=== PATIENT | female | born 1985 | race Caucasian/White ===

== ENCOUNTER → 2024-07-29 11:13 | Outpatient (REF) | payer OTHER, SELFPAY | LOC: PNTC 11:13 | PROVIDERS: ATTENDING PHYSICIAN Obstetrics & Gynecology | DX: Z34.93 Encounter for supervision of normal pregnancy, unspecified, third trimester (principal) | CPT/HCPCS: 36415; 86850; 86900; 86901; 96372; J2790 ==

== ENCOUNTER 2024-09-09 19:36 | Observation (INO) | payer OTHER, SELFPAY ==
[2024-09-09 19:42] VITALS: BMI 39.3
[2024-09-09 20:09] VITALS: BP 130/83
== END 2024-09-09 23:37 | disposition home or self-care (01) ==
LOC: LDRP 19:36
PROVIDERS: ADMITTING PHYSICIAN Obstetrics & Gynecology
DX: O47.03 False labor before 37 completed weeks of gestation, third trimester (principal); Z3A.35 35 weeks gestation of pregnancy
CPT/HCPCS: G0378

== ENCOUNTER 2024-10-01 06:22 | Inpatient (IN) | payer OTHER, SELFPAY ==
[2024-10-01] MEDS: MORPHINE SULFATE 2 MG IV (07:01)
[2024-10-01 07:36] VITALS: BP 108/54; BMI 40.6
[2024-10-01 08:33] LABS: % Basophils 0.1 % (0-2); % Eosinophils 0.3 % (0-6); % Immature Granulocytes 1.6 % (0-0.5); % Lymphocytes 7.5 % (20.5-51.1); % Monocytes 4.3 % (1.7-9.3); % Neutrophils 86.2 % (42.2-75.2); Absolute Immature Granulocytes 0.2 10^3/uL (0-0.05); Absolute Lymphocytes 1.1 10^3/uL (1.2-3.4); Absolute Monocytes 0.6 10^3/uL (0.1-0.6); Absolute Neutrophils 12.6 10^3/uL (1.4-6.5); Hematocrit 31.8 % (37.0-47.0); Hemoglobin 10.4 g/dL (12.0-16.0); Mean Corp Hgb Conc. 32.7 g/dL (33.0-37.0); Mean Corpuscular Hgb 27.3 pg (27.0-31.0); Mean Corpuscular Volume 83.5 fL (81.0-99.0); Mean Platelet Volume 11.4 fL (7.4-10.4); Nucleated Red Blood Cells % 0 %; Platelet Count 185 10^3/uL (130-400); Red Blood Cell Count 3.81 10^6/uL (4.20-5.40); Red Cell Dist. Width 15.4 % (11.5-14.5); White Blood Cell Count 14.6 10^3/uL (4.8-10.8)
[2024-10-01] MEDS: MOTRIN 600 MG PO ×3 (09:10→22:34)
[2024-10-01] MEDS: TYLENOL 650 MG PO ×3 (09:10→22:34)
[2024-10-02 05:40] LABS: Hematocrit 29.4 % (37.0-47.0); Hemoglobin 9.6 g/dL (12.0-16.0)
[2024-10-02] MEDS: SENOKOT-S 1 TABLET PO (08:48)
[2024-10-02] MEDS: MOTRIN 600 MG PO ×3 (08:48→21:03)
[2024-10-02] MEDS: TYLENOL 650 MG PO ×3 (09:20→21:03)
[2024-10-02] MEDS: RHOGAM 300 MCG IM ×2 (14:57→17:22)
[2024-10-02 17:50] LABS: Syphilis/T. pallidum Ab Reflex Negative (Negative)
[2024-10-03] MEDS: TYLENOL 650 MG PO ×2 (03:07→10:04)
[2024-10-03] MEDS: MOTRIN 600 MG PO ×2 (03:08→10:04)
[2024-10-03] MEDS: SENOKOT-S 1 TABLET PO (07:54)
[2024-10-03] MEDS: FEOSOL 325 MG PO (07:54)
== END 2024-10-03 17:30 | disposition home or self-care (01) | DRG 807 ==
LOC: LDRP 06:22
PROVIDERS: Obstetrics & Gynecology; ADMITTING PHYSICIAN Obstetrics & Gynecology
PROC: 6A550ZT Pheresis of Cord Blood Stem Cells, Single (ICD-10-PCS; 2024-10-01)
PROC: 0HQ9XZZ Repair Perineum Skin, External Approach (ICD-10-PCS; 2024-10-01)
PROC: 10E0XZZ Delivery of Products of Conception, External Approach (ICD-10-PCS; 2024-10-01)
PROC: 0UQMXZZ Repair Vulva, External Approach (ICD-10-PCS; 2024-10-01)
PROC: 3E0234Z Introduction of Serum, Toxoid and Vaccine into Muscle, Percutaneous Approach (ICD-10-PCS; 2024-10-02)
DX: Z39.0 Encounter for care and examination of mother immediately after delivery (principal); Z37.0 Single live birth; Z87.442 Personal history of urinary calculi; O99.825 Streptococcus B carrier state complicating the puerperium; O70.0 First degree perineal laceration during delivery; O99.215 Obesity complicating the puerperium; O90.81 Anemia of the puerperium; D64.9 Anemia, unspecified; Z88.2 Allergy status to sulfonamides
CPT/HCPCS: 36415; 85014; 85018; 85025; 85461; 86780; 86850; 86870; 86900; 86901; J2790

== ENCOUNTER 2024-11-01 18:29 | Emergency (ER) | payer OTHER, SELFPAY ==
[2024-11-01 18:34] VITALS: BP 134/84
[2024-11-01 18:53] LABS: Hematocrit 38.4 % (37.0-47.0); Hemoglobin 12.2 g/dL (12.0-16.0); Mean Corp Hgb Conc. 31.8 g/dL (33.0-37.0); Mean Corpuscular Volume 84.6 fL (81.0-99.0); Nucleated Red Blood Cells % 0 %; Platelet Count 213 10^3/uL (130-400); Red Cell Dist. Width 16.1 % (11.5-14.5)
[2024-11-01 19:08] LABS: ALT (SGPT) 24 U/L (0-35); AST (SGOT) 22 U/L (14-36); Albumin 4.5 g/dl (3.5-5.0); Alkaline Phosphatase 90 U/L (38-126); Blood Urea Nitrogen 12 mg/dl (7-17); Calcium 9.3 mg/dl (8.4-10.2); Carbon Dioxide 24 mmol/L (22-30); Chloride 107 mmol/L (98-107); Glucose 91 mg/dl (70-99); Potassium 3.9 mmol/L (3.5-5.1); Sodium 138 mmol/L (135-145); Total Protein 7.1 g/dl (6.3-8.2); eGFR > 60.00
[2024-11-01 20:00] VITALS: BP 121/65
--- NOTE | 2024-11-01 22:54 | ED.GENMED ---
History of Present Illness
General
Chief Complaint: Vaginal Bleeding
Source: patient
Exam Limitations: none
Time Seen by Provider: 11/01/24 20:24
Nursing documentation reviewed up to this point in time: agreed with
History of Present Illness
History of Present Illness:
Patient to ED with complaint of vaginal bleeding. SHe is 4 weeks. Bleeding started 2 days ago but was light, Since this AM she reports heavy bleeding, occassional small clots. Denies any abdominal or pelvic pain. No cramping.
Brought self to ED for eval.
Past History
Past History
ED Past Medical History: None
Review of Systems
Review of Systems
Allergies reviewed?: Yes
All Other Systems: ROS reviewed and negative except as documented in HPI and ROS
Constitutional: Reports no symptoms
EENT: Reports no symptoms
Respiratory: Reports no symptoms
Cardiac: Reports no symptoms
ABD/GI: Reports no symptoms
: Reports bleeding (heavy vaginal bleeding since this AM)
Musculoskeletal: Reports no symptoms
Skin: Reports no symptoms
Neurological: Reports no symptoms
Psychiatric: Reports no symptoms
Phy Exam
General Physical Exam
General Presentation: well appearing and no apparent distress
General age: appears stated age
General Skin: warm and dry
General Habitus: normal
General Mental: alert
General Hydration: appears well hydrated
Cardiovascular Exam
Cardiovascular Exam: regular rate/rhythm
Gastrointestinal Exam
Gastrointestinal Exam: non tender, soft, no organomegaly, no pulsatile mass and non distended
Genitourinary Exam Female
Exam Female: vaginal bleeding
Vaginal Exam: blood
Vaginal Bleeding: moderate
Musculoskeletal Exam
Musculoskeletal Exam: full ROM and neuro vasc intact
Skin Exam
Skin Exam: normal color, warm/dry and no rash
Psychiatric Exam
Psychiatric Exam: normal mood/affect
Course
Orders/Labs/Results
Orders:
Orders
11/01/24 18:40
Type+Screen Urgent
Complete Blood Count/With Diff Urgent
Comprehensive Metabolic Panel Urgent
11/01/24 20:24
US Pelvis W Transvag Combined Urgent
Reason For Exam: bleeding
11/01/24 23:03
Tranexamic Acid [Cyklokapron] 1,300 mg PO NOW STA
Abnormal Lab Results
11/01/24
18:40
MCH 26.9 L pg
(27.0-31.0)
MCHC 31.8 L g/dL
(33.0-37.0)
RDW 16.1 H %
(11.5-14.5)
MPV 11.0 H fL
(7.4-10.4)
Antibody Screen Positive A
(Negative)
11/01/24 18:40
11/01/24 18:40
Vital Signs
Initial and Last Documented VS:
Initial Vital Signs
Resp
16
11/01/24 18:32
Last Documented Vital Signs
Temp Pulse Resp BP Pulse Ox
98.3 F 67 14 129/88 100
11/01/24 18:34 11/02/24 00:00 11/02/24 00:00 11/02/24 00:00 11/02/24 00:00
*Radiology
Radiology exam reviewed: radiology read reviewed
*Pulse Oximetry
SaO2: 98
Oxygen Mode of Delivery: Room air
Patient hypoxic: no
*Critical Care Note
Total Time (30-74mins, 75-104mins- exclusive of procedures): Not Applicable
Update Note
Update Note:
Patient to ED with complaint of vaginal bleeding. She is 4weeks . Bleeding started 3 days ago, today became heavy. Labs, US report reviewed. Dr. Vogel consulted. WIll placedon TXA 1300mg tid prn, patient to follow up in office. TXA
started in dept. patient given instructions on s/s to return to ED and she is agreeable to plan. Will call Dr. Vogel office in AM, schedule follow up appointment.
ED Attending Note
-
Portions of this chart may have been created with voice recognition software.� Occasional wrong word or��sound alike� substitutions may have occurred due to the inherent limitations of voice recognition software.
Discharge Plan
Departure
Patient Disposition: Home (Routine Discharge)
Date of Disposition: 11/01/24
Time of Disposition: 23:08
Patient with high blood pressure during this ER visit?: No
Condition: Good
Covid-19: Not Applicable
Discharge Problem:
Vaginal bleeding
Instructions: Heavy periods - ED discharge instructions
Prescriptions:
New
tranexamic acid 650 mg tablet
1,300 mg PO TID PRN (Reason: heavy bleeding) 5 Days Qty: 30 0RF
No Action
1 tab PO DAILY
acetaminophen 325 mg Tablet
650 mg PO Q4HPRN PRN (Reason: mild pain) Qty: 0 0RF
ibuprofen 600 mg Tablet
600 mg PO Q6HPRN PRN (Reason: moderate pain/cramps) Qty: 0 0RF
Referrals:
Alexia Vogel, DO [Active, Gynecology] - Call in 1-3 days for appt
UNKNOWN - PT DOES,NOT KNOW [Family Provider]
Activity Restrictions/Additional Instructions:
Return to the emergency department immediately for any changes in/worsening of your symptoms.
Interventions
Interventions:
*Risk Screen - Suicide Last Done: 11/01/24 18:34
*General Assessment Last Done: 11/01/24 21:00
*Neglect/Abuse Screening Last Done: 11/01/24 18:34
*ED- Fall Risk Assessment Last Done: 11/01/24 21:00
*ED COVID-19 Vaccine History Last Done: 11/01/24 21:00
*Nursing Disposition Last Done: 11/02/24 00:00
ED-Female Genitourinary Assessment Last Done: 11/01/24 21:00
Discharge Date and Time
Discharge Date/Time: 11/02/24 00:00
Print Language: ROMANIAN
[2024-11-01] MEDS: CYKLOKAPRON 1300 MG PO (23:18)
[2024-11-01 23:30] VITALS: BP 129/88
[2024-11-02] VITALS: BP 129/88
== END 2024-11-02 | disposition home or self-care (01) ==
LOC: EMR 18:29
PROVIDERS: EMERGENCY PHYSICIAN Emergency Medicine
DX: N93.9 Abnormal uterine and vaginal bleeding, unspecified (principal)
CPT/HCPCS: 99284; 76830; 76856; 80053; 85025; 86850; 86870; 86900; 86901

== ENCOUNTER 2025-03-24 22:07 | Inpatient (IN) | payer OTHER, SELFPAY ==
[2025-03-24 18:37] VITALS: BP 155/89
[2025-03-24 18:53] LABS: Hematocrit 39.3 % (37.0-47.0); Hemoglobin 12.6 g/dL (12.0-16.0); Mean Corp Hgb Conc. 32.1 g/dL (33.0-37.0); Mean Corpuscular Volume 88.5 fL (81.0-99.0); Nucleated Red Blood Cells % 0 %; Platelet Count 186 10^3/uL (130-400); Red Cell Dist. Width 14.4 % (11.5-14.5)
[2025-03-24 19:15] LABS: HCG, Serum Qualitative Screen Negative
[2025-03-24 19:16] LABS: ALT (SGPT) 12 U/L (0-35); AST (SGOT) 15 U/L (14-36); Albumin 4.3 g/dl (3.5-5.0); Alkaline Phosphatase 92 U/L (38-126); Blood Urea Nitrogen 13 mg/dl (7-17); Calcium 9.2 mg/dl (8.4-10.2); Carbon Dioxide 26 mmol/L (22-30); Chloride 102 mmol/L (98-107); Glucose 96 mg/dl (70-99); Potassium 4.3 mmol/L (3.5-5.1); Sodium 134 mmol/L (135-145); Total Protein 7.4 g/dl (6.3-8.2); eGFR > 60.00
[2025-03-24 20:00] LABS: Urine Character Clear (Clear)
[2025-03-24 20:13] LABS: Urine Squamous Cell >30 /LPF (Few)
[2025-03-24 20:15] LABS: Urine Red Blood Cell 50-60 /HPF (0-2)
[2025-03-24] MEDS: NSS 1000 IV ×2 (20:16→23:00)
[2025-03-24] MEDS: TORADOL 15 MG IV (20:17)
--- NOTE | 2025-03-24 20:45 | ED.GENMED ---
History of Present Illness
General
Chief Complaint: Flank Pain
Source: patient
Exam Limitations: none
Time Seen by Provider: 03/24/25 19:35
Nursing documentation reviewed up to this point in time: agreed with
History of Present Illness
History of Present Illness:
Patient is a 39-year-old female with history of kidney stones who presents to the emergency department with left flank pain. Patient states that she has had intermittent pain in her left flank for the past month however noticed acute worsening
today. She describes a severe, constant pain in her left flank radiating to her left groin associated with nausea. She has not had any episodes of vomiting. No known fever however has felt 'chills'. Patient denies any chest pain or shortness of
breath. No dysuria, urinary hesitancy, or hematuria.
Patient states that she has a history of obstructing kidney stones approximately 8 years ago which required stents and lithotripsy. This was done at [facility]. She has not seen a urologist since that time.
Past History
Past History
ED Past Medical History: None
Review of Systems
Review of Systems
Allergies reviewed?: Yes
All Other Systems: ROS reviewed and negative except as documented in HPI and ROS
Phy Exam
Physical Exam
Physical Exam:
Vitals: Hypertensive and tachycardic on arrival, otherwise vital signs stable. Afebrile
General: Patient is moderately uncomfortable appearing due to pain. Nontoxic
Skin: Warm and dry, no rashes or lesions
Head: Normocephalic, atraumatic
Eyes: Sclera nonicteric.
Throat: Protecting airway
Neck: Normal ROM, no cervical spine tenderness, no meningismus
Cardiac: Tachycardic, normal rhythm. No murmurs
Pulm: Normal respiratory effort. Lungs clear bilaterally
Abdomen: Abdomen soft. Mild tenderness in left mid/lower abdomen without rebound or guarding. Reproducible tenderness in left flank area. No rash or ecchymoses.
Extremities: No evidence of cyanosis or edema
Neuro: AAOx3. Grossly intact
Psychiatric: Normal affect.
Course
Orders/Labs/Results
Orders:
Orders
03/24/25 18:41
Test Result ONCE
03/24/25 18:45
Complete Blood Count/With Diff Urgent
Comprehensive Metabolic Panel Urgent
HCG, Serum Qualitative Screen Urgent
03/24/25 18:56
CT Abd/pelvis Wo Iv Cont Urgent
Comment: left flank pain
Reason For Exam: r/o kidney stone
03/24/25 19:49
0.9% Sodium Chloride 1000 ml [Nss] 1,000 ml IV BOLUS
Ketorolac [Toradol] 15 mg IV NOW STA
03/24/25 19:51
Urinalysis Reflex To Culture Urgent
Date Specimen was Collected: 03/24/25
Time Specimen was Collected: 19:43
Urine Microscopic Reflex Cult Urgent
Urine Culture Urgent
SIMON Source: U
Specimen Description:
Date Specimen was Collected: 03/24/25
Time Specimen was Collected: 19:43
03/24/25 21:14
CefTRIAXone [Rocephin] 1,000 mg IV NOW STA
03/24/25 21:42
Admit/Transfer Patient As Directed
Co-Sign Provider:
Level of Care: Inpatient admission
Assign to:: Telemetry
Physician / Group: jesus
Diagnosis: obstructing stone
Reason for Telemetry: Arrhythmia
Date to Stop Telemetry: 03/27/25
Time to Stop Telemetry: 11:00
Reason for Hospitalization: obstructing stone
Expected length of stay greater than two midnights?: Yes
ELOS- Estimated Length of Stay in days: 3
I certify the patient meets the requirements for IP care: Yes
PRN Pain Medication Management As Directed
May give lesser potent ordered pain med per pt: Yes
preference::
Protocol:: Medication orders for pain may be administered in a
manner that supports deferring to patient preference
when the pt is:
- Requesting an ordered lesser potent pain medication.
Least to most potent pain medications are defined
as: acetaminophen < NSAID < tramadol < opioids
(morphine, oxycodone, hydromorphone).
- Requesting a lesser dose of the same medication IF
ORDERED.
- Requesting a less intrusive route of administration
if both routes are prescribed by the provider (PO <
IV).
03/24/25 21:43
Code Status As Directed
Resuscitation Status: Full Code
03/24/25 21:49
PRN Pain Medication Management As Directed
May give lesser potent ordered pain med per pt: Yes
preference::
Protocol:: Medication orders for pain may be administered in a
manner that supports deferring to patient preference
when the pt is:
- Requesting an ordered lesser potent pain medication.
Least to most potent pain medications are defined
as: acetaminophen < NSAID < tramadol < opioids
(morphine, oxycodone, hydromorphone).
- Requesting a lesser dose of the same medication IF
ORDERED.
- Requesting a less intrusive route of administration
if both routes are prescribed by the provider (PO <
IV).
03/24/25 22:53
0.9% Sodium Chloride 1000 ml [Nss] 1,000 ml IV 125 mls/hr
Acetaminophen [Tylenol] 650 mg PO Q4HPRN PRN
Bisacodyl [Dulcolax] 10 mg RECTAL [id number] PRN
Docusate W/Senna [Senokot-S] 1 tablet PO BIDPRN PRN
HYDROmorphone [Dilaudid] 0.5 mg IV Q4HPRN PRN
Oxycodone [Roxicodone] 5 mg PO Q4HPRN PRN
Polyethylene Glycol Powder [Miralax] 17 grams PO DAILYPRN PRN
03/24/25 22:53
UROLOGY CONSULT Routine
Consulting Provider: Charles Germain Jr.
Was physician already notified: Yes
Activity As Directed
Activity Level: As Tolerated
Strain Urine As Directed
Venous Foot Pumps As Directed
Location: Bilateral feet
Vital Signs As Directed
Frequency: Per unit guidelines
DX Deep Vein Thrombosis Video Routine
03/25/25 05:27
Basic Metabolic Panel IN AM
Complete Blood Count/No Diff IN AM
03/25/25 21:00
CefTRIAXone [Rocephin] 1,000 mg IV Q24H
03/26/25 06:00
Basic Metabolic Panel IN AM
03/27/25 06:00
Basic Metabolic Panel IN AM
03/27/25 11:00
DC Protocol for Telemetry ONCE
Abnormal Lab Results
03/24/25 03/24/25
18:45 19:51
WBC 15.3 H 10^3/uL
(4.8-10.8)
MCHC 32.1 L g/dL
(33.0-37.0)
MPV 10.8 H fL
(7.4-10.4)
Abs Immat Gran (auto) 0.1 H 10^3/uL
(0-0.05)
Absolute Neuts (auto) 12.9 H 10^3/uL
(1.4-6.5)
Absolute Monos (auto) 0.9 H 10^3/uL
(0.1-0.6)
Neutrophils % 84.4 H %
(42.2-75.2)
Lymphocytes % 8.4 L %
(20.5-51.1)
Sodium 134 L mmol/L
(135-145)
Creatinine 1.1 H mg/dL
(0.6-1.0)
Ur Occult Blood Reflex 3+ A
(Negative)
Urine RBC 50-60 A /HPF
(0-2)
Urine WBC (Reflex) 11-15 A /HPF
(0-5)
Urine Bacteria (Reflex) Few A
(Negative)
Urine Albumin (Reflex) 1+ A
(Neg - Trace)
03/24/25 18:45
03/24/25 18:45
Vital Signs
Initial and Last Documented VS:
Initial Vital Signs
Temp Pulse Resp BP Pulse Ox
98.9 F 115 16 155/89 99
03/24/25 18:37 03/24/25 18:37 03/24/25 18:37 03/24/25 18:37 03/24/25 18:37
Last Documented Vital Signs
Temp Pulse Resp BP Pulse Ox
97.7 F 94 20 103/91 99
03/25/25 10:46 03/25/25 11:00 03/25/25 11:00 03/25/25 11:00 03/25/25 11:00
MDM/Problems Addressed
Differential Diagnosis Includes:
Not limited to: Renal colic, pyelonephritis, muscle strain/spasm, diverticulitis, etc.
MDM/Problems Addressed:
39 year-old female presenting with left flank pain associated w/ nausea. History of obstructing kidney stones. No fevers, dysuria, or hematuria.
Patient tachycardia and hypertensive on arrival however improved by my assessment. On exam, she appears moderately uncomfortable due to pain. Abdomen is soft with tenderness in left mid abdomen. Left CVA tenderness noted. No rash. Cardio/pulmonary
assessment unremarkable.
Prior to my evaluation, basic labs were sent which reveal a leukocytosis and very mild renal insufficiency with creatinine of 1.1.
Clinical picture most consistent with renal colic. Will obtain CT scan abdomen/pelvis without contrast. UA is pending. Will treat pain with Toradol and give IV fluids.
Update: UA appears contaminated, however without clear evidence of associated UTI. CT scans shows a 1.8 CM stone in left renal pelvis at UPJ causing mod hydro.
Given size � very very low likelihood of spontaneous passage. Case was discussed with urology systems applications programming lead, Dr. Germain who ultimately recommends admission to hospital, IV antibiotics and NPO for stent placement tomorrow. Patient is agreeable with this
plan and accepted to hospitalist service for further management.
Chronic conditions affecting care:
History of kidney stones
Acute Exacerbation and/or Progression of Chronic Illness:
Obstructing stone within the left renal pelvis at UPJ with moderate hydro
*Radiology
Radiology exam reviewed: radiology read reviewed
*Pulse Oximetry
SaO2: 99
Oxygen Mode of Delivery: Room air
Patient hypoxic: no
*EKG
Interpreted by ED Provider?: NA
*Control Room Supervisor Interpretation
Rate: Control Room Supervisor- N/A
*Critical Care Note
Total Time (30-74mins, 75-104mins- exclusive of procedures): Not Applicable
Patient Management
Discussion with other providers: Hospitalist and Senior Geologist (Case discussed with urology)
ED Attending Note
-
Portions of this chart may have been created with voice recognition software.� Occasional wrong word or��sound alike� substitutions may have occurred due to the inherent limitations of voice recognition software.
Discharge Plan
Departure
Patient Disposition: Admit
Date of Disposition: 03/24/25
Time of Disposition: 21:20
Presentation/result/management discussed w/ accepting MD/DO: Hospitalist
Condition: Good
Discharge Problem:
Obstruction of left ureteropelvic junction (UPJ) due to stone
Interventions
Interventions:
*Risk Screen - Suicide Last Done: 03/24/25 23:00
*General Assessment Last Done: 03/24/25 19:41
*Neglect/Abuse Screening Last Done: 03/24/25 18:37
*ED COVID-19 Vaccine History Last Done: 03/24/25 23:00
*ED Influenza Vaccine History Last Done: 03/24/25 19:41
[facility] Fall Risk Assessment Tool Last Done: 03/24/25 19:32
*Nursing Disposition Last Done: 03/24/25 22:46
RM-Scjrco-Xdulkupwnf Assessment Last Done: 03/24/25 19:41
ED-Female Genitourinary Assessment Last Done: 03/24/25 19:41
Discharge Date and Time
Discharge Date/Time: 03/24/25 22:46
[2025-03-24] MEDS: ROCEPHIN 1000 MG IV (21:19)
--- NOTE | 2025-03-24 21:26 | HPS.HSE ---
Addendum entered and electronically signed by Laurent Mckeon DO 03/24/25 22:45:
Patient seen and examined independently. Agree with findings and plan as set forth by TIFFANIE Jorge.
Patient is a 39y F with PMH significant for nephrolithiasis requiring prior ureteroscopies, stents, etc who presents to ED complaining of L flank pain. Patient reports similar discomfort intermittently over the past few months. Today the pain
was more severe and did not resolve with time - prompting her to present to the ED for further evaluation. No fevers / chills. No dysuria, hematuria, etc.
Pos nausea without emesis.
Ass:
Left Nephrolithiasis
Moderate Hydronephrosis secondary to the above
Leukocytosis
Plan;
Admit for further evaluation and treatment.
IVFs, IV abx, pain control and antiemetics.
NPO after midnight for OR tomorrow with Urology.
No additional medical issues of note.
Original Note:
Family Physician
-
Family Physician: * NONE
Chief Complaint
-
left flank pain
History of Present Illness
39-year-old female with history of kidney stones who presents to the emergency department with left flank pain. patient stated left flank pain intermittently for past one month. today the pain was constant. patient stated left flank pain radiating
to the left groin and side of the abdomen.patient complained of urinary frequency and urgency. denied any hematuria. she was nauseous with pain today. she was complaining of BROWN. denied dizzy or syncope. denied fever, cills, chest pain,s ob. denied
vomiting or diarrhea. patient was taking advil for his pain.
CT concerning of 1.8 cm calculus within the left renal pelvis at the ureteropelvic junction with associated moderate left hydronephrosis.
patient received a dose of ceftriaxone, Toradol and normal saline in ER. admitting for further management.
Medical History
Past Medical History
Past Medical History: Reports None
Past Surgical History: Reports Other
Additional Past Surgical History:
appendectomy
lithotripsy
Social History
Tobacco: Non-smoker
Alcohol: None
Drug: None
Living: With Family
Family History
Family History: Not pertinent
Allergies / Home Medications
Allergies reflects when Allergies were last updated in [facility].
Home Medications with original date entered in [facility]
Allergy/Medication List:
Allergies
Allergy/AdvReac Type Severity Reaction Status Date / Time
Sulfa (Sulfonamide Allergy SEE BELOW Verified 03/24/25 18:37
Antibiotics)
Home Medications
calcium carbonate (Tums) 400 mg PO BIDPRN PRN GERD 03/24/25
ibuprofen 200 mg tablet (Advil) 400 mg PO DAILYPRN PRN MILD PAIN 03/24/25
norelgestromin 150 mcg-e.estradiol 35 mcg/24 hr weekly transderm patch (Xulane) 1 patch transdermal WE 03/24/25
Review of Systems
-
Constitutional: Reports No Symptoms
EENT: Reports No Symptoms
Respiratory: Reports No Symptoms
Cardiac: Reports No Symptoms
Abdomen/GI: Reports No Symptoms
: Reports Frequency, Flank Pain and Urgency
Musculoskeletal: Reports No Symptoms
Skin: Reports No Symptoms
Neurological: Reports No Symptoms
Endocrine: Reports No Symptoms
Hematologic/Lymphatic: Reports No Symptoms
Psych: Reports No Symptoms
Physical Exam
Vital Signs
Vital Signs
Temp Pulse Resp BP Pulse Ox
98.9 F 115 16 155/89 99
03/24/25 18:37 03/24/25 18:37 03/24/25 18:37 03/24/25 18:37 03/24/25 20:50
Physical Exam
General: Well Developed, Well Nourished and No Apparent Distress
HEENT: NormoCephalic, Moist mucous membranes and Atraumatic
Respiratory: Clear
Cardiac: S1/S2 and Regular Rhythm; No Murmur or Rub
GI: Soft, Non Tender, Non Distended and Normal Bowel Sounds; No Organomegaly
Rectal: Deferred by Provider
Musculoskeletal: No Clubbing, No Cyanosis and No Edema
Skin: No Rash
Neuro: AO x 3 and Nonfocal/grossly intact
Psych: Calm
Laboratory Results
-
03/24/25 18:45
03/24/25 18:45
Laboratory Results
Total Bilirubin 0.5 mg/dl (0.2-1.3) 03/24/25 18:45
AST 15 U/L (14-36) 03/24/25 18:45
ALT 12 U/L (0-35) 03/24/25 18:45
Alkaline Phosphatase 92 U/L (38-126) 03/24/25 18:45
Data Reviewed
-
CT Scan: Report Reviewed by me
Lab Data: Labs Reviewed by me
Impression/Plan
-
#sepsis secondary to obstructing stone at left UPJ
-wbc 15.3
-CT shows1.8 cm calculus within the left renal pelvis at the ureteropelvic junction with associated moderate left hydronephrosis.
-keep patient NPO for stent tomorrow
-iv ceftriaxone continued
-oxy and Dilaudid prn for pain
-Tylenol prn for fever or pain
-urology consulted
#acute kidney injury likely from hydro
-cr 1.1
-BMP in am
#DVT Prophylaxis
-scd
#CODE status
-full code
[2025-03-24 23:00] VITALS: BP 132/77; BMI 36.0
--- NOTE | 2025-03-24 23:15 | PTCARENOTE ---
Pt a 39-year-old female with history of kidney stones arrived from ED at 22:52. PMH of kidney stones. Pt AOx3, pain at an acceptable level,bed in a low position, call light in reach, care ongoing.
[2025-03-25] VITALS (13 sets, daily range): BP systolic 92–149; BP diastolic 44–91; BMI 36.0
[2025-03-25] MEDS: DILAUDID 0.5 MG IV ×3 (00:45→11:07)
[2025-03-25] MEDS: ROXICODONE 5 MG PO ×2 (02:57→08:12)
[2025-03-25 06:24] LABS: Hematocrit 33.9 % (37.0-47.0); Hemoglobin 11.2 g/dL (12.0-16.0); Mean Corp Hgb Conc. 33.0 g/dL (33.0-37.0); Mean Corpuscular Volume 84.8 fL (81.0-99.0); Platelet Count 169 10^3/uL (130-400); Red Cell Dist. Width 14.6 % (11.5-14.5)
--- NOTE | 2025-03-25 06:31 | CON.MD ---
Consultation - Medical
-
see dictated note
pt with complex stone hx- prev followed at [facility]
several years ago presented with large stone burden- stones were removed- ? approach- possibly robotic ureterolithotomy
pt on no prevention and now f/u
now with several weeks of flank pain- became sig last night
CT shows 2cm left upj stone- wbc slightly elevated- no fever until this am- still very uncomfortable
plan
reviewed with pt
continue aggressive hydration and antibx
to OR as soon as room available for stent- given unknown prior surgical hx did review possible need for perc
reviewed risks of sepsis and need for staged stone approach after stent/infx
Consultation
-
Date/Time Consultation Requested: 03/24/25 at 9pm
Date/Time Consultation Performed: 03/24/25 at 6:30am
Requesting Provider: Dr Mckeon
Performing Provider: Dr Germain
Reason for Consultation: stone
[2025-03-25 07:00] LABS: Blood Urea Nitrogen 14 mg/dl (7-17); Calcium 8.3 mg/dl (8.4-10.2); Carbon Dioxide 25 mmol/L (22-30); Chloride 106 mmol/L (98-107); Estimated Creatinine Clearance 64 ml/min; Glucose 101 mg/dl (70-99); Potassium 4.3 mmol/L (3.5-5.1); Sodium 133 mmol/L (135-145); eGFR 54.31
[2025-03-25] MEDS: GENTAMICIN 54.5 MG IV (07:25)
[2025-03-25] MEDS: NSS 1000 IV ×2 (07:28→20:57)
[2025-03-25] MEDS: TYLENOL 650 MG PO (08:18)
--- NOTE | 2025-03-25 10:45 | W.IMMPOSTOP ---
Surgical Immed Post Op Note
-
Primary Surgeon:
nya
Assisting Surgeon:
Pre-op Diagnosis:
left upj stone/UTI
Post-op Diagnosis:
same
Procedure Performed:
cysto/left ureteral stent placement
Anesthesia Type:
gen
Specimen / Cultures:
none
Estimated Blood Loss:
1cc
Complications:
none
Operative Findings:
7 malawian/24 cm left ureteral stent placed
to pacu in stable condition
continue antibx and await ucx
observe for any sepsis parameters
[2025-03-25] MEDS: DETROL LA 4 MG PO (12:50)
--- NOTE | 2025-03-25 13:01 | W.PN.HOSP.TC ---
Today's Communication/Plan
-
Continue IV fluid, IV Rocephin, hopeful discharge home in next 24-hour if WBC and creatinine normalize.
Assessment / Plan
Assessment / Plan
Impression:
39-year-old female with history of kidney stones presenting with left flank pain.
Pain: intermittent for past month, constant today, radiating to left groin and side of abdomen
Associated symptoms: urinary frequency and urgency, nausea, headache
Denies: hematuria, dizziness, syncope, fever, chills, chest pain, SOB, vomiting, diarrhea
Took Advil for pain
CT: 1.8 cm calculus within left renal pelvis at ureteropelvic junction with moderate left hydronephrosis
Received ceftriaxone, Toradol, and IV fluids in ED
Admitted for further management
Assessment/plan:
Sepsis with acute organ dysfunction secondary to
Left UPJ Stone with Associated Hydronephrosis and UTI
Urology consulted
Status post Left UPJ stone/UTI
Pain control: oxycodone and Dilaudid PRN
Tylenol PRN for fever or pain
Continue ceftriaxone
Acute Kidney Injury likely secondary to obstruction
Initial creatinine: 1.1 up to 1.3
Repeat BMP in AM
CODE STATUS: Full code
DVT prophylaxis: SCDs
Diet: Regular diet
Family communication: Discussed with significant other at bedside
Disposition: Continue IV fluid, IV Rocephin, hopeful discharge home in next 24-hour if WBC and creatinine normalize.
Total time spent on today's encounter was 55minutes which included time spent in counseling the patient/family regarding diagnosis and treatment plan as listed above, goals of care, and symptom management. Case was discussed with nursing staff,
specialists, and care coordinators/case management. All labs and imaging personally reviewed by me. Remainder the time spent in detailed review of previous records, lab data, imaging, and other medical provider documentation.
Anticipated Discharge: 24 - 48 hours
Subjective/Interval History
-
Date of Service: March 25, 2025
Patient seen and examined at bedside, family at bedside, just came back from the OR , denies any chest pain or shortness of breath, improved abdominal pain, no nausea, no vomiting, no diarrhea or constipation.
Objective Data
-
Labs:
Laboratory Results
03/25/25
05:27
WBC 12.8 H
Hgb 11.2 L
Hct 33.9 L
Plt Count 169
Sodium 133 L
Potassium 4.3
Chloride 106
Carbon Dioxide 25
BUN 14
Creatinine 1.3 H
Glucose 101 H
Calcium 8.3 L
Vital Signs:
Vital Signs
Temp Pulse Resp BP Pulse Ox
98.9 F 83 15 112/44 95
03/25/25 11:30 03/25/25 11:30 03/25/25 11:30 03/25/25 11:30 03/25/25 12:00
I&O
03/24/25 03/25/25 03/26/25
06:59 06:59 06:59
Output Total 700 / 700
Balance -700 / -700
Physical Exam
-
General: Well Developed, Well Nourished, No Apparent Distress and Comfortable
HEENT: Normocephalic, Atraumatic, Moist Mucous Membranes, No Ptosis, PERRLA and Nose Appears Normal
Respiratory: Clear to Auscultation and Non Labored Respirations
Cardiac: Regular Rhythm and S1/S2
Breast: Deferred by me
GI: Soft, Nontender, Nondistended and Normal Bowel Sounds
Genito-urinary: No Costovertebral Tender
Musculoskeletal: No Clubbing, No Cyanosis and No Edema
Skin: Warm
Neuro: Awake, Alert, Oriented, AO x 3 and No Motor Deficits
Psych: Calm
Data Reviewed
-
Diagnostic Radiology: Image personally visualized and interpreted and Report Reviewed by me
CT Scan: Image personally visualized and interpreted and Report Reviewed by me
Ultrasound: Image personally visualized and interpreted and Report Reviewed by me
MRI: Image personally visualized and interpreted and Report Reviewed by me
Medical Tests (Nuc Med, Echo etc): Image personally visualized and interpreted and Report Reviewed by me
Labs: Labs Reviewed by me
Old Records: Reviewed
--- NOTE | 2025-03-25 13:33 | PTCARENOTE ---
Pt returned from PACU in bed. IVF infusing per order. Pt c/o urge to urinate, assisted to the BR and urinated cloudy yellow urine. Urine strained per protocol. Bed locked and in the lowest position, safety maintained. Oriented to room and call saldivar,
significant other at bedside.
--- NOTE | 2025-03-25 15:36 | CM ---
Met with patient at bedside
Pharmacy verified: [facility] @ [address] [facility]
Does not have a PCP at this time; recently relocated; plans to seek an appointment close to her home
Lives w/ Significant Other and 3 children; [place]; 2nd floor bath has walk-in shower w/ shower chair
PLOF: independent with ambulation, stairs, ADLs; drivew; unemployed; has two babies: 15 Month Daughter; 5 Month Son. Has support from family; mother plans to stay with her after discharge to help; NO DME
No SNF or Home Health utilization history
Significant other will provide transport home
Plan: Discharge to home when stable; no needs anticipated
[2025-03-25] MEDS: STERILE WATER FOR INJECTION 10 ML IV (21:00)
[2025-03-25] MEDS: ROCEPHIN 1000 MG IV (21:00)
[2025-03-26] MEDS: SENOKOT-S 1 TABLET PO (00:24)
[2025-03-26] MEDS: ROXICODONE 5 MG PO ×3 (02:35→21:08)
[2025-03-26 03:00] VITALS: BP 139/78
[2025-03-26] MEDS: NSS 1000 IV (03:30)
[2025-03-26 06:00] VITALS: BMI 36.8
[2025-03-26 07:20] VITALS: BP 116/65
[2025-03-26 07:57] LABS: Blood Urea Nitrogen 12 mg/dl (7-17); Calcium 8.6 mg/dl (8.4-10.2); Carbon Dioxide 23 mmol/L (22-30); Chloride 106 mmol/L (98-107); Estimated Creatinine Clearance 93 ml/min; Glucose 120 mg/dl (70-99); Potassium 4.2 mmol/L (3.5-5.1); Sodium 134 mmol/L (135-145); eGFR > 60.00
[2025-03-26 08:07] LABS: Hematocrit 32.5 % (37.0-47.0); Hemoglobin 10.7 g/dL (12.0-16.0); Mean Corp Hgb Conc. 32.9 g/dL (33.0-37.0); Mean Corpuscular Volume 85.5 fL (81.0-99.0); Platelet Count 189 10^3/uL (130-400); Red Cell Dist. Width 14.6 % (11.5-14.5)
--- NOTE | 2025-03-26 08:41 | W.PN.URO.CBU ---
Today's Communication / Plan
-
continue antibx
outpt urology f/u
Assessment / Plan
-
large obstructing left upj stone and fever
s/p stent
pt stable
unfortunately no target organism on cx
would continue inpatient therapy until wbc declines- then complete 14 day antibx course
outpt f/u with dr fay to discuss stone surgery
Diagnosis
-
Date of Service: March 26, 2025
-
Patient Diagnosis:
stone
UTI
Post Op Day:
left ureteral stent 03/25
Subjective
-
pt with fatigue/freq and BROWN
no fevers
ucx contaminated
wbc up to 19
Objective
-
Vital Signs
Temp Pulse Resp BP Pulse Ox
98.9 F 68 16 116/65 97
03/26/25 07:20 03/26/25 07:20 03/26/25 07:20 03/26/25 07:20 03/26/25 07:20
Intake and Output
03/25/25 03/26/25 03/27/25
06:59 06:59 06:59
Intake Total 4000 / 4000
Output Total 700 / 700 3950 / 3950
Balance -700 / -700 50 / 50
Intake:
Oral fluids 1500 / 1500
IV fluids (Total) 1000 / 1000
IV piggybacks 1500 / 1500
Output:
Urine, Voided 700 / 700 3950 / 3950
Laboratory Results
03/26/25 06:53
03/26/25 06:53
Physical Exam
-
General - no acute distress
[2025-03-26] MEDS: DETROL LA 4 MG PO (10:33)
[2025-03-26] MEDS: MIRALAX 17 GRAMS PO (10:42)
--- NOTE | 2025-03-26 11:25 | W.PN.HOSP.TC ---
Today's Communication/Plan
-
Continue IV abx and follow WBC counts
pain control
d/w Urology
Assessment / Plan
Assessment / Plan
Assessment:
Sepsis (UTI + AMAYA) - POA
Left UPJ Stone with Associated Hydronephrosis and UTI
- CT: 1.8 cm calculus within the left renal pelvis at the ureteropelvic junction with associated moderate left hydronephrosis
- s/p cysto/left ureteral stent placement 03/25
- monitor WBC, fever curve
- Ucx, mixed diane; continue Cefepime day 06/05
- Renal function normalized with obstruction relieved
DVT ppx: SCDs
Code: Full
Anticipated Discharge: > 48 hours
Subjective/Interval History
-
Date of Service: March 26, 2025
no fever or chills, WBC is 19 today
reports flank pain improving
Objective Data
-
Labs:
Laboratory Results
03/26/25
06:53
WBC 19.4 H
Hgb 10.7 L
Hct 32.5 L
Plt Count 189
Sodium 134 L
Potassium 4.2
Chloride 106
Carbon Dioxide 23
BUN 12
Creatinine 0.9
Glucose 120 H
Calcium 8.6
Vital Signs:
Vital Signs
Temp Pulse Resp BP Pulse Ox
98.9 F 68 16 116/65 97
03/26/25 07:20 03/26/25 07:20 03/26/25 07:20 03/26/25 07:20 03/26/25 07:20
I&O
03/25/25 03/26/25 03/27/25
06:59 06:59 06:59
Intake Total 4000 / 4000 660 / 660
Output Total 700 / 700 3950 / 3950 1000 / 1000
Balance -700 / -700 50 / 50 -340 / -340
Physical Exam
-
General: No Apparent Distress
HEENT: Normocephalic and Atraumatic
Respiratory: Negative Wheezes
Cardiac: Regular Rhythm and S1/S2
GI: Soft
Genito-urinary: No Costovertebral Tender
Neuro: AO x 3
Psych: Calm
Data Reviewed
-
Total Time Spent with Patient (in minutes): 42
Labs: Labs Reviewed by me
[2025-03-26 11:50] VITALS: BP 132/69
[2025-03-26 15:10] VITALS: BP 121/79
--- NOTE | 2025-03-26 16:04 | CM ---
Patient seen bedside.
Patient denies home care needs.
Plan: home no needs.
[2025-03-26 19:00] VITALS: BP 127/69
[2025-03-26] MEDS: FLUSH (NSS) 2 FLUSH IV (20:54)
[2025-03-26] MEDS: STERILE WATER FOR INJECTION 10 ML IV (20:54)
[2025-03-26] MEDS: ROCEPHIN 1000 MG IV (20:54)
[2025-03-26 23:23] VITALS: BP 121/67
[2025-03-27 03:11] VITALS: BP 127/71
[2025-03-27 06:00] VITALS: BMI 36.7
[2025-03-27 06:59] LABS: Hematocrit 31.5 % (37.0-47.0); Hemoglobin 10.2 g/dL (12.0-16.0); Mean Corp Hgb Conc. 32.4 g/dL (33.0-37.0); Mean Corpuscular Volume 85.8 fL (81.0-99.0); Nucleated Red Blood Cells % 0 %; Platelet Count 206 10^3/uL (130-400); Red Cell Dist. Width 14.8 % (11.5-14.5)
[2025-03-27 07:35] VITALS: BP 132/72
[2025-03-27 07:42] LABS: Blood Urea Nitrogen 16 mg/dl (7-17); Calcium 8.6 mg/dl (8.4-10.2); Carbon Dioxide 29 mmol/L (22-30); Chloride 103 mmol/L (98-107); Estimated Creatinine Clearance 84 ml/min; Glucose 84 mg/dl (70-99); Potassium 4.0 mmol/L (3.5-5.1); Sodium 134 mmol/L (135-145); eGFR > 60.00
[2025-03-27] MEDS: DETROL LA 4 MG PO (09:16)
[2025-03-27] MEDS: ROXICODONE 5 MG PO (09:28)
[2025-03-27] MEDS: MIRALAX 17 GRAMS PO (09:28)
[2025-03-27] MEDS: SENOKOT-S 1 TABLET PO (09:28)
--- NOTE | 2025-03-27 11:09 | W.PN.HOSP.TC ---
Today's Communication/Plan
-
if pain improves Saturday and WBC further improves, probable DC
Assessment / Plan
Assessment / Plan
Assessment:
Sepsis (UTI + AMAYA) - POA
Left UPJ Stone with Associated Hydronephrosis and UTI
- CT: 1.8 cm calculus within the left renal pelvis at the ureteropelvic junction with associated moderate left hydronephrosis
- s/p cysto/left ureteral stent placement 03/25
- monitor WBC, fever curve
- Ucx, mixed diane; continue Cefepime day 07/03
- Renal function normalized with obstruction relieved
DVT ppx: SCDs
Code: Full
Anticipated Discharge: 24 - 48 hours
Subjective/Interval History
-
Date of Service: March 27, 2025
reports some mild L flank pain, less than yesterday
WBC 11
Objective Data
-
Labs:
Laboratory Results
03/27/25
06:15
WBC 11.1 H
Hgb 10.2 L
Hct 31.5 L
Plt Count 206
Sodium 134 L
Potassium 4.0
Chloride 103
Carbon Dioxide 29
BUN 16
Creatinine 1.0
Glucose 84
Calcium 8.6
Vital Signs:
Vital Signs
Temp Pulse Resp BP Pulse Ox
98.5 F 63 16 132/72 98
03/27/25 07:35 03/27/25 07:35 03/27/25 07:35 03/27/25 07:35 03/27/25 07:35
I&O
03/26/25 03/27/25 03/28/25
06:59 06:59 06:59
Intake Total 4000 / 4000 1140 / 1140
Output Total 3950 / 3950 3100 / 3100
Balance 50 / 50 -1960 / -1960
Physical Exam
-
General: No Apparent Distress
HEENT: Normocephalic and Atraumatic
Respiratory: Negative Wheezes
Cardiac: Regular Rhythm and S1/S2
GI: Soft
Genito-urinary: No Costovertebral Tender
Neuro: AO x 3
Psych: Calm
Data Reviewed
-
Total Time Spent with Patient (in minutes): 42
Labs: Labs Reviewed by me
[2025-03-27 11:25] VITALS: BP 131/81
[2025-03-27] MEDS: TYLENOL 650 MG PO (12:07)
[2025-03-27 15:25] VITALS: BP 126/79
[2025-03-27] MEDS: STERILE WATER FOR INJECTION 10 ML IV (20:04)
[2025-03-27] MEDS: ROCEPHIN 1000 MG IV (20:04)
[2025-03-27 23:23] VITALS: BP 126/76
[2025-03-28 07:45] VITALS: BP 129/78
[2025-03-28 08:00] LABS: Hematocrit 33.9 % (37.0-47.0); Hemoglobin 11.3 g/dL (12.0-16.0); Mean Corp Hgb Conc. 33.3 g/dL (33.0-37.0); Mean Corpuscular Volume 86.5 fL (81.0-99.0); Nucleated Red Blood Cells % 0 %; Platelet Count 249 10^3/uL (130-400); Red Cell Dist. Width 14.4 % (11.5-14.5)
[2025-03-28 08:14] LABS: Blood Urea Nitrogen 18 mg/dl (7-17); Calcium 8.8 mg/dl (8.4-10.2); Carbon Dioxide 26 mmol/L (22-30); Chloride 101 mmol/L (98-107); Estimated Creatinine Clearance 93 ml/min; Glucose 83 mg/dl (70-99); Potassium 3.9 mmol/L (3.5-5.1); Sodium 132 mmol/L (135-145); eGFR > 60.00
[2025-03-28] MEDS: TYLENOL 650 MG PO (08:42)
[2025-03-28] MEDS: SENOKOT-S 1 TABLET PO (08:42)
[2025-03-28] MEDS: MIRALAX 17 GRAMS PO (08:43)
[2025-03-28] MEDS: DETROL LA 4 MG PO (08:43)
--- NOTE | 2025-03-28 10:31 | W.PN.HOSP.TC ---
Today's Communication/Plan
-
dc to home today
Assessment / Plan
Assessment / Plan
Assessment:
Sepsis (UTI + AMAYA) - POA
Left UPJ Stone with Associated Hydronephrosis and UTI
- CT: 1.8 cm calculus within the left renal pelvis at the ureteropelvic junction with associated moderate left hydronephrosis
- s/p cysto/left ureteral stent placement 03/25
- monitor WBC, fever curve
- Ucx, mixed diane; continue Cefdinir day 08/03
- Renal function normalized with obstruction relieved
- OP Urology f/u
DVT ppx: SCDs
Code: Full
More than 30 minutes spent in discharge including
Final examination of the patient
Summarizing hospital stay
Instructions for continuing care to all relevant caregivers
Preparation of discharge records, prescriptions, and referral forms
Total time spent (in minutes): 41
Anticipated Discharge: Today
Subjective/Interval History
-
Date of Service: March 28, 2025
Flank pain improving
WBC down to 8
patient agreeable to home DC
Objective Data
-
Labs:
Laboratory Results
03/28/25
06:50
WBC 8.3
Hgb 11.3 L
Hct 33.9 L
Plt Count 249 D
Sodium 132 L
Potassium 3.9
Chloride 101
Carbon Dioxide 26
BUN 18 H
Creatinine 0.9
Glucose 83
Calcium 8.8
Vital Signs:
Vital Signs
Temp Pulse Resp BP Pulse Ox
98.0 F 62 16 129/78 98
03/28/25 07:45 03/28/25 07:45 03/28/25 07:45 03/28/25 07:45 03/28/25 07:45
I&O
03/27/25 03/28/25 03/29/25
06:59 06:59 06:59
Intake Total 1140 / 1140 960 / 960 240 / 240
Output Total 3100 / 3100 1650 / 1650 250 / 250
Balance -1960 / -1960 -690 / -690 -10 / -10
Physical Exam
-
General: No Apparent Distress
HEENT: Normocephalic and Atraumatic
Respiratory: Negative Wheezes
Cardiac: Regular Rhythm and S1/S2
GI: Soft and Nontender
Neuro: AO x 3
Psych: Calm
Data Reviewed
-
Total Time Spent with Patient (in minutes): 41
Labs: Labs Reviewed by me
--- NOTE | 2025-03-28 10:33 | W.DCSUMMARY ---
Discharge Summary
Discharge Data
Date of Admission: 03/24/25
Date of Discharge: 03/28/25
-
Pending Results: No
Hospital Course
39 y/o F, hx of nephrolithiasis requiring prior ureteroscopies and stents presented to with L flank pain. CT imaging revealed 1.8 cm L renal pelvis calculus at the ureteropelvic junction with associated moderate left hydronephrosis. Urology was
consulted and patient underwent cysto/left ureteral stent placement 03/25. She will return to Urology office for stone removal and stent removal in the coming weeks. She also had clinical evidence of UTI and will finish 14 days of antibiotics per
Urology. She was discharged home on 03/28 after improvement of pain and resolution of leukocytosis.
Discharge Plan
-
Patient Disposition: Home (Routine Discharge)
Discharge Diagnosis/Procedures: nephrolithiasis s/p cysto/left ureteral stent placement 03/25. UTI
Condition: Fair
Diet: Regular
Activity: As tolerated
Bathing Restrictions: None
Referrals:
NONE,* [Family Provider, Internal Medicine]
Charles Germain Jr., MD [Active, Urology]
Referral Note: call on Saturday to schedule next procedure(s)
Prescriptions:
New
tolterodine 4 mg Capsule,Extended Release 24hr
4 mg PO DAILY Qty: 30 0RF
phenazopyridine 100 mg Tablet
100 mg PO Q8 PRN (Reason: Pain) Qty: 60 0RF
Rx Instructions:
for stent pain/dysuria
cefdinir 300 mg Capsule
300 mg PO Q12 Qty: 20 0RF
oxycodone 5 mg Tablet
5 mg PO Q4HPRN PRN (Reason: moderate pain) Qty: 10 0RF
acetaminophen 325 mg Tablet
650 mg PO Q4HPRN PRN (Reason: mild pain/BROWN/temp> 100.4F) Qty: 100 0RF
Continued
calcium carbonate [Tums] 200 mg calcium (500 mg) Tablet,Chewable
400 mg PO BIDPRN PRN (Reason: GERD)
norelgestromin-ethin.estradiol [Xulane] 150-35 mcg/24 hr Patch Weekly
1 patch TRANSDERMAL WE
Rx Instructions:
ON FOR 3 WEEKS AND OFF 1 ONE WEEK
Discontinued
ibuprofen [Advil] 200 mg Tablet
400 mg PO DAILYPRN PRN (Reason: MILD PAIN)
Discharge Orders:
Discharge Patient (As Directed); Ordered 03/28/25
Ordered By: Low Barrios
Discharge Date and Time
Print Language: GRENADIAN
[2025-03-28] MEDS: OMNICEF 300 MG PO (11:08)
[2025-03-28 12:02] VITALS: BP 129/84
== END 2025-03-28 12:54 | disposition home or self-care (01) | DRG 854 ==
LOC: 2 SOUTH 22:07
PROVIDERS: Emergency Medicine; Radiology Vascular & Interventional Radiology; Registered Nurse; ADMITTING PHYSICIAN Hospitalist; ATTENDING PHYSICIAN Internal Medicine; CONSULT PHYSICIAN Specialist; EMERGENCY PHYSICIAN Emergency Medicine
PROC: 0T778DZ Dilation of Left Ureter with Intraluminal Device, Via Natural or Artificial Opening Endoscopic (ICD-10-PCS; 2025-03-24)
PROC: BT1FZZZ Fluoroscopy of Left Kidney, Ureter and Bladder (ICD-10-PCS; 2025-03-24)
DX: A41.9 Sepsis, unspecified organism (principal); N13.2 Hydronephrosis with renal and ureteral calculous obstruction; N39.0 Urinary tract infection, site not specified; N17.9 Acute kidney failure, unspecified; R65.20 Severe sepsis without septic shock; K21.9 Gastro-esophageal reflux disease without esophagitis; Z79.899 Other long term (current) drug therapy; Z87.442 Personal history of urinary calculi
CPT/HCPCS: 74018; 74176; 76000; 80048; 80053; 81003; 81015; 84703; 85025; 85027; 87086; 96361; 96374; 96375; 99285

== ENCOUNTER 2025-04-08 06:34 | Day surgery (SDC) | payer OTHER, SELFPAY ==
[2025-04-08] VITALS (8 sets, daily range): BP systolic 112–141; BP diastolic 70–89; BMI 35.6
[2025-04-08] MEDS: DETROL LA 4 MG PO (13:22)
[2025-04-12 10:54] LABS: Stone Analysis Mass 99 mg
== END 2025-04-08 14:00 | disposition home or self-care (01) ==
LOC: SDS 06:34
PROVIDERS: ATTENDING PHYSICIAN Specialist
DX: N20.0 Calculus of kidney (principal)
CPT/HCPCS: 52356; 74018; 76000; 82365; 87086